=== PATIENT | female | born 1975 | race Caucasian/White ===

== ENCOUNTER 2018-11-02 13:39 | Emergency (ER) | payer OTHER ==
[~2018-11-02] VITALS: Ht 167.6 cm; Wt 90.7 kg
[2018-11-02] MEDS ORDERED: AMBIEN 5 MG TABL5 M1 PO (13:48)
[2018-11-02] MEDS ORDERED: THERAFLU EXP245.5 M1 PO (13:48)
[2018-11-02] MEDS ORDERED: TIROSINT25 MCG PO (13:48)
[2018-11-02 14:09] LABS: HEMATOCRIT 40.5 % (37.0-47.0); HEMOGLOBIN 14.2 gm/dL (12.0-15.0); MCH 29.7 pg (26.0-34.0); MCHC 34.9 g/dL (28.0-37.0); MPV 7.1 fl. (7.2-11.1); RBC 4.77 mil/uL (4.20-5.00); RDW-CV 12.8 % (10.5-14.5); WBC 11.8 thou/uL (4.0-11.0)
[2018-11-02 14:16] LABS: CALCIUM 8.9 mg/dL (8.5-10.1); CREATININE 0.6 mg/dL (0.6-1.3); POTASSIUM 3.9 mmol/L (3.5-5.1)
[2018-11-02] MEDS ORDERED: HYDROCODONE-AP1 EAC6 PO (17:27)
[2018-11-02] MEDS ORDERED: MEDROLDOSEPACK PO (17:27)
[2018-11-02] MEDS ORDERED: AUGMENTIN 875-1 EACH PO (17:27)
[2018-11-02 17:53] VITALS: BP 117/77
== END 2018-11-02 17:54 | disposition home or self-care (01) ==
LOC: M.ERS 13:39
PROVIDERS: Emergency Medicine Emergency Medical Services
DX: J36 Peritonsillar abscess (principal); Z90.711 Acquired absence of uterus with remaining cervical stump